=== PATIENT | male | born 1975 | race Two or more races ===

== ENCOUNTER 2019-06-30 09:20 | Emergency (ER) | payer SELFPAY ==
[~2019-06-30] VITALS: Ht 167.6 cm; Wt 83.5 kg
[2019-06-30 09:26] VITALS: BP 127/79
[2019-06-30] MEDS ORDERED: IPRATROPIUM NEB FS 0.5 MG/2.5 ML AMPUL.NEB ONE (10:23)
[2019-06-30] MEDS ORDERED: ALBUTEROL FS 2.5 MG/3 ML VIAL.NEB ONE (10:23)
[2019-06-30] MEDS ORDERED: predniSONE 20 MG TABLET PO ONE (10:30)
[2019-06-30] MEDS ORDERED: IPRATROPIUM NEB FS 0.5 MG/2.5 ML AMPUL.NEB NEB ONE (10:30)
[2019-06-30] MEDS ORDERED: ALBUTEROL FS 2.5 MG/3 ML VIAL.NEB NEB ONE (10:30)
[2019-06-30] MEDS ORDERED: predniSONE 20 MG TABLET ONE (10:48)
== END 2019-06-30 11:47 | disposition home or self-care (01) ==
LOC: ER 09:26
DX: J45.909 Unspecified asthma, uncomplicated (principal); R06.02 Shortness of breath; F10.10 Alcohol abuse, uncomplicated; Y90.9 Presence of alcohol in blood, level not specified
CPT/HCPCS: 94644; 99285; J7512

== ENCOUNTER 2019-07-07 08:31 | Emergency (ER) | payer SELFPAY ==
[~2019-07-07] VITALS: Ht 170.2 cm; Wt 83.9 kg
--- NOTE | 2019-07-07 08:39 | NUR ---
"SOB X 1 MONTH, WORST FOR PAST 2 DAYS. WAS SEEN 1 WEEK AGO FOR SAME REASON" PT AAOX4, -SOB, NAD NOTED, VSS, PENDING MD ROUSE
[2019-07-07] MEDS ORDERED: ALBUTEROL FS 2.5 MG/3 ML VIAL.NEB NEB STA (09:05)
[2019-07-07] MEDS ORDERED: IPRATROPIUM NEB FS 0.5 MG/2.5 ML AMPUL.NEB NEB STA (09:05)
[2019-07-07] MEDS ORDERED: IPRATROPIUM NEB FS 0.5 MG/2.5 ML AMPUL.NEB ONE (09:23)
[2019-07-07] MEDS ORDERED: ALBUTEROL FS 2.5 MG/3 ML VIAL.NEB ONE (09:23)
[2019-07-07] MEDS ORDERED: methylPREDNISolone SOD SUCC 125 MG/2ML VIAL ONE (09:29)
[2019-07-07] MEDS ORDERED: methylPREDNISolone SOD SUCC 125 MG/2ML VIAL IV ONE (09:30)
[2019-07-07 09:41] LABS: BASOPHILS # (AUTO) 0.1 /CMM (0.0-0.2); EOSINOPHILS % (AUTO) 5.7 % (0.0-6.0); HEMATOCRIT 43 % (39-51); HEMOGLOBIN 14.5 g/dL (13.5-17.5); LYMPHOCYTES # (AUTO) 3.3 /CMM (0.8-4.8); LYMPHOCYTES % (AUTO) 49.9 % (20.0-44.0); MEAN CORPUSCULAR HGB CONC 34 g/dl (31.0-36.0); MEAN CORPUSCULAR VOLUME 88 fL (80-96); MONOCYTES # (AUTO) 0.4 /CMM (0.1-1.30); MONOCYTES % (AUTO) 6.6 % (2.0-12.0); NEUTROPHILS # (AUTO) 2.4 /CMM (1.8-8.9); NEUTROPHILS % (AUTO) 36.8 % (43.0-81.0); PLATELET COUNT (AUTO) 199 /CMM (150-450); RED BLOOD CELL COUNT(AUTO) 4.86 MIL/uL (4.5-6.0); WHITE BLOOD COUNT (AUTO) 6.6 K/uL (4.3-11.0)
[2019-07-07 09:45] LABS: CALCIUM, SERUM 9.2 mg/dL (8.5-10.1); CARBON DIOXIDE 28 mmol/L (21-32); CHLORIDE 107 mmol/L (98-107); GLUCOSE 97 mg/dL (74-106); POTASSIUM 3.8 mmol/L (3.5-5.1); SODIUM SERUM 142 mmol/L (136-145); UREA NITROGEN, BLOOD 13 mg/dL (7-18)
[2019-07-07 09:52] LABS: ABG BASE EXCESS -1.6 mmol/L; ABG OXYGEN SATURATION 70.6 % (92.0-98.5); ABG PCO2 34.8 mmHg (35.0-45.0); ABG PH 7.422 (7.350-7.450); ABG PO2 34.8 mmHg (75.0-100.0); COHb 0.9 % (0.5-1.5); MetHb 0.4 % (0.0-1.5); O2Hb 69.7 % (94.0-97.0); SITE, ABG LEFT ARM; VENT MODE, BG RA
[2019-07-07 09:56] LABS: B-TYPE NATRIURETIC PEPTIDE 36 PG/ML (0-125)
--- NOTE | 2019-07-07 11:02 | NUR ---
Patient discharged to home in stable condition. Written and verbal after care instructions given. Patient verbalizes understanding of instruction. IV removed. Catheter intact and site benign. Pressure and 4x4 applied to site. No bleeding noted.
[2019-07-07 11:04] VITALS: BP 139/80
== END 2019-07-07 11:04 | disposition home or self-care (01) ==
LOC: ER 08:31
DX: J98.01 Acute bronchospasm (principal)
CPT/HCPCS: 36415; 36600; 71045; 80048; 83880; 84484; 85025; 93005; 94644; 96374; 99285; J2930

== ENCOUNTER 2019-12-14 22:43 | Emergency (ER) | payer SELFPAY ==
[~2019-12-14] VITALS: Ht 167.6 cm; Wt 86.2 kg
[2019-12-14 22:57] VITALS: BP 120/82
--- NOTE | 2019-12-14 23:04 | NUR ---
at the bed side
== END 2019-12-14 23:18 | disposition home or self-care (01) ==
LOC: ER 22:49
DX: J45.909 Unspecified asthma, uncomplicated (principal)

== ENCOUNTER 2022-02-10 04:38 | Emergency (ER) | payer OTHER ==
[~2022-02-10] VITALS: Ht 170.2 cm; Wt 86.2 kg
[2022-02-10 04:54] VITALS: BP 143/93
--- NOTE | 2022-02-10 04:54 | NUR ---
KELLY C/O LEFT 4TH TOE INJURY, SWELLING, AND DISCOLORATION FROM "JAMMING TOE ON TABLE". 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
--- NOTE | 2022-02-10 05:08 | NUR ---
HAND STRIPPER AT PT'S BEDSIDE
[2022-02-10] MEDS ORDERED: IBUP-1955 PO (07:42)
--- NOTE | 2022-02-10 07:59 | NUR ---
Patient discharged to home in stable condition. Written and verbal after care instructions given. Patient verbalizes understanding of instruction.
== END 2022-02-10 07:59 | disposition home or self-care (01) ==
LOC: ER 04:57
DX: S90.32XA Contusion of left foot, initial encounter (principal); J45.909 Unspecified asthma, uncomplicated; X58.XXXA Exposure to other specified factors, initial encounter; Y93.89 Activity, other specified; Y92.89 Other specified places as the place of occurrence of the external cause; Y99.8 Other external cause status
CPT/HCPCS: 73630-TC